=== PATIENT | female | born 1990 | race Caucasian/White ===

== ENCOUNTER 2017-02-08 07:17 | Inpatient (IN) | payer BC ==
[2017-02-08] MEDS ORDERED: Nalbuphine 20 MG/1 ML Amp IVPUSH PRN (07:22)
[2017-02-08] MEDS ORDERED: Sodium Chloride 0.9% 10 ML Syringe FLUSH PRN (07:22)
[2017-02-08] MEDS ORDERED: Ondansetron 4 MG/2 ML SDV IVPUSH PRN ×2 (07:22→15:42)
--- NOTE | 2017-02-08 07:26 | PCM.LDHP ---
L&D History of Present Illness - General Date of Service: 02/08/17 Admit Problem/Dx: Patient Status Order with Admit Dx/Problem 02/08/17 07:23 Patient Status [ADT] Routine Admission Diagnosis/Problem Admission Diagnosis/Problem Normal Source of Information: Patient History Limitations: Reports: No Limitations - History of Present Illness Introduction:: Patient is a 26 y/o at 37 4/7 wks who presents today for planned IOL for gestational HTN. Reports doing well recently. No persistent WICK's, vision changes, or RUQ pain. No contractions. No other concerns. 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) - Past Surgical History Musculoskeletal Surgical History: Reports: Other (See Below) (Fracture surgery) Social & Family History - Tobacco Use Smoking Status *Q: Never Smoker - Alcohol Use Alcohol Use History: No - Recreational Drug Use Recreational Drug Use: No H&P Review of Systems - Review of Systems: Review Of Systems: See Below General: Reports: No Symptoms Pulmonary: Reports: No Symptoms Cardiovascular: Reports: No Symptoms Gastrointestinal: Reports: No Symptoms Genitourinary: Reports: No Symptoms Musculoskeletal: Reports: No Symptoms Psychiatric: Reports: No Symptoms Neurological: Reports: No Symptoms L&D Exam - Exam Exam: See Below - OB Specific Contraction Intensity: Irritability Movement: Active Heart Tones: Present Heart Tones per Min: 135 Heart Rate (FHR) Variability: Moderate (6-25 bmp) Presentation: Vertex - Escamilla Score Escamilla Score Cervix Position: Posterior Escamilla Score Consistency: Medium Escamilla Score Effacement: 31-50% Escamilla Score Dilation: 1-2 cm Escamilla Score 's Station: -3 Escamilla Score Total: 3 - Exam General: Alert, Oriented, Cooperative Lungs: Clear to Auscultation, Normal Respiratory Effort Cardiovascular: Regular Rate, Regular Rhythm GI/Abdominal Exam: Soft, Non-Tender Genitourinary: Normal external exam Extremities: Normal Inspection Skin: Warm, Dry, Intact - Patient Data Result Diagrams: 02/08/17 07:49 02/08/17 07:49 - Problem List (1) Gestational hypertension SNOMED Code(s): 67907149 ICD Code: O13.9 - GESTATIONAL HTN W/O SIGNIFICANT PROTEINURIA, UNSP TRIMESTER Status: Acute Current Visit: Yes (2) 37 weeks gestation of SNOMED Code(s): 08502524 ICD Code: Z3A.37 - 37 WEEKS GESTATION OF Status: Acute Current Visit: Yes (3) GBS (group B Streptococcus carrier), +RV culture, currently SNOMED Code(s): 98329874 ICD Code: O99.820 - STREPTOCOCCUS B CARRIER STATE COMPLICATING Status: Acute Current Visit: Yes Problem List Initiated/Reviewed/Updated: Yes Orders Last 24hrs: Active Orders 24 hr Category Date Time Status Patient Status [ADT] Routine ADT 02/08/17 07:23 Ordered Activity as Tolerated [RC] PFP Care 02/08/17 07:22 Ordered Communication Order [RC] ASDIRECTED Care 02/08/17 07:22 Ordered Communication Order [RC] ASDIRECTED Care 02/08/17 07:22 Ordered Communication Order [RC] ASDIRECTED Care 02/08/17 07:22 Ordered Communication Order [RC] ASDIRECTED Care 02/08/17 07:22 Ordered Heart Tones [RC] ASDIRECTED Care 02/08/17 07:23 Ordered Monitoring [RC] INTERMITTENT Care 02/08/17 07:22 Ordered Notify Provider [RC] ASDIRECTED Care 02/08/17 07:22 Ordered Notify Provider [RC] PFP Care 02/08/17 07:22 Ordered Notify Provider [RC] PRN Care 02/08/17 07:22 Ordered Peripheral IV Care [RC] . DIRECTED Care 02/08/17 07:23 Ordered Up ad Tamika [RC] ASDIRECTED Care 02/08/17 07:22 Ordered Vaginal Exam [RC] ASDIRECTED Care 02/08/17 07:22 Ordered Vital Signs [RC] ASDIRECTED Care 02/08/17 07:22 Ordered Vital Signs [RC] PER UNIT ROUTINE Care 02/08/17 07:22 Ordered Regular Diet [DIET] Diet 02/08/17 Breakfast Ordered ALANINE AMINOTRANSFERASE,ALT [CHEM] Routine Lab 02/08/17 07:22 Ordered ASPARTATE AMNIOTRANSFERASE,AST [CHEM] Routine Lab 02/08/17 07:22 Ordered CBC W/O DIFF,HEMOGRAM [HEME] Routine Lab 02/08/17 07:22 Ordered CREATININE W/GFR [CHEM] Routine Lab 02/08/17 07:22 Ordered TYPE AND SCREEN [BBK] Routine Lab 02/08/17 07:22 Ordered Lactated Ringers [Ringers, Lactated] 1,000 ml Med 02/08/17 07:30 Ordered IV ASDIRECTED Misoprostol [Cytotec] Med 02/08/17 07:22 Ordered 25 mcg VAG Q4H PRN Nalbuphine [Nubain] Med 02/08/17 07:22 Ordered 10 mg IVPUSH Q2H PRN Ondansetron [Zofran] Med 02/08/17 07:22 Ordered 4 mg IVPUSH Q4H PRN Oxytocin/Lactated Ringers [Pitocin in LR 10 Units/1,000 Med 02/08/17 07:30 Ordered ML] 10 unit in 1,000 ml IV .CONTINUOUS Oxytocin/Lactated Ringers [Pitocin in LR 10 Units/1,000 Med 02/08/17 07:30 Ordered ML] 10 unit in 1,000 ml IV TITRATE Penicillin G Potassium [Pfizerpen] 2.5 millunits Med 02/08/17 21:30 Ordered Sodium Chloride 0.9% [Normal Saline] 100 ml IV Q4H Penicillin G Potassium [Pfizerpen] 5 millunits Med 02/08/17 17:30 Ordered Sodium Chloride 0.9% [Normal Saline] 100 ml IV ONETIME Sodium Chloride 0.9% [Saline Flush] Med 02/08/17 07:22 Ordered 10 ml FLUSH ASDIRECTED PRN Electronic Heart Tones Ext w TOCO [WOMSER] Oth 02/08/17 07:22 Ordered Routine Electronic Heart Tones Internal [WOMSER] Per Unit Oth 02/08/17 07:22 Ordered Routine Peripheral IV Insertion Adult [OM.PC] Routine Oth 02/08/17 07:22 Ordered Resuscitation Status Routine Resus Stat 02/08/17 07:22 Ordered Assessment/Plan Comment:: 26 y/o at 37 4/7 wks who presents for IOL for gestational HTN * CBC, T&S, AST, ALT, Creatinine * Cytotec for IOL for now. Levine bulb when able * Pain management per patient preference * GBS positive, will start antibiotics later in induction process * Anticipate
[2017-02-08] MEDS ORDERED: Oxytocin/Lactated Ringers 10 UNIT/1,000 ML BAG IV SCH (07:30)
[2017-02-08] MEDS ORDERED: Misoprostol 25 MCG (1/4 of 100 MCG) Tab ONE (07:31)
[2017-02-08] MEDS: Misoprostol 25 MCG (1/4 of 100 MCG) Tab VAG PRN ×2 (07:35→11:38)
--- NOTE | 2017-02-08 12:19 | PCM.PNLD ---
Labor Progress Note - VS & Meds Vital Signs: Last Vital Signs Temp 37.3 C 02/08/17 07:22 Pulse 85 02/08/17 07:22 Resp 16 02/08/17 07:22 BP 138/91 H 02/08/17 07:22 Pulse Ox Active Medications: Current Medications Lactated Ringer's (Ringers, Lactated) 1,000 mls @ 40 mls/hr IV ASDIRECTED ANASTASIA Oxytocin/Lactated Ringer's (Pitocin In Lr 10 Units/1,000 Ml) 10 unit in 1,000 mls @ 12 mls/hr IV TITRATE ANASTASIA; 2 MUNITS/MIN PRN Reason: Protocol Oxytocin/Lactated Ringer's (Pitocin In Lr 10 Units/1,000 Ml) 10 unit in 1,000 mls @ 500 mls/hr IV .CONTINUOUS ANASTASIA Penicillin G Potassium 5 (millunits/ Sodium Chloride) 100 mls @ 55 mls/hr IV ONETIME ONE Stop: 02/08/17 19:19 Penicillin G Potassium 2.5 (millunits/ Sodium Chloride) 100 mls @ 55 mls/hr IV Q4H ANASTASIA Misoprostol (Cytotec) 25 mcg VAG Q4H PRN PRN Reason: cervical ripening Last Admin: 02/08/17 11:38 Dose: 25 mcg Nalbuphine HCl (Nubain) 10 mg IVPUSH Q2H PRN PRN Reason: Pain (moderate 4-6) Ondansetron HCl (Zofran) 4 mg IVPUSH Q4H PRN PRN Reason: Nausea/Vomiting Sodium Chloride (Saline Flush) 10 ml FLUSH ASDIRECTED PRN PRN Reason: Keep Vein Open Discontinued Medications Misoprostol (Cytotec) Confirm Administered Dose 25 mcg .ROUTE .STK-MED ONE Stop: 02/08/17 07:32 Last Admin: 02/08/17 08:38 Dose: Not Given - Uterine Contractions Uterine Monitoring Mode: External [place] Contraction Intensity: Mild Uterine Resting Tone: Soft - Monitoring Monitor Mode: External Ultrasound Heart Rate (FHR) Baseline: 130 Heart Rate (FHR) Variability: Moderate (6-25 bmp) Accelerations: Present, 15x15 Decelerations: None Strip Review: Category I - Vaginal Exam Dilation (cm): 1 Effacement (Percent): 50 Station: -3 - Labor Progress (Free Text) Labor Progress: Patient doing well. Feeling some cramping. Otherwise doing well. 2nd cytotec placed at 1130. Levine bulb placed now to aid in induction process. Continue present management.
--- NOTE | 2017-02-08 15:31 | PCM.PREANE ---
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 ) Other: Reports: None - Physical Assessment NPO Status Date: 02/08/17 NPO Status Time: 15:00 Respiratory Rate: 16 Vital Signs: Last Vital Signs Temp 37.3 C 02/08/17 07:22 Pulse 85 02/08/17 07:22 Resp 16 02/08/17 07:22 BP 138/91 H 02/08/17 07:22 Pulse Ox Height: 1.78 m Weight: 107.184 kg ASA Class: 2 Mental Status: Alert & Oriented x3 Airway Class: Mallampati = 1 Dentition: Reports: Normal Dentition Thyro-Mental Finger Breadths: 3 Mouth Opening Finger Breadths: 3 ROM/Head Extension: Full Lungs: Clear to Auscultation, Normal Respiratory Effort Cardiovascular: Regular Rate, Regular Rhythm - Lab Values: Laboratory Last Values WBC 12.91 K/mm3 (3.98-10.04) H 02/08/17 07:49 RBC 3.78 M/mm3 (3.98-5.22) L 02/08/17 07:49 Hgb 10.7 gm/L (11.2-15.7) L 02/08/17 07:49 Hct 32.8 % (34.1-44.9) L 02/08/17 07:49 MCV 86.8 fl (79.4-94.8) 02/08/17 07:49 MCH 28.3 pg (25.6-32.2) 02/08/17 07:49 MCHC 32.6 g/dl (32.2-35.5) 02/08/17 07:49 RDW Std Deviation 39.8 fL (36.4-46.3) 02/08/17 07:49 Plt Count 270 K/mm3 (182-369) 02/08/17 07:49 MPV 10.9 fl (9.4-12.3) 02/08/17 07:49 Creatinine 0.7 mg/dL (0.55-1.02) 02/08/17 07:49 Est Cr Clr Drug Dosing 131.70 mL/min 02/08/17 07:49 Estimated GFR (MDRD) > 60 mL/min (>60) 02/08/17 07:49 AST 18 U/L (15-37) 12 07:49 ALT 18 U/L (14-59) 02/08/17 07:49 Blood Type O POSITIVE 02/08/17 07:49 Gel Antibody Screen Negative 02/08/17 07:49 - Allergies Allergies/Adverse Reactions: Allergies Allergy/AdvReac Type Severity Reaction Status Date / Time No Known Allergies Allergy Verified 02/08/17 07:45 - Blood Blood Available: No Product(s) Available: None - Anesthesia Plan Pre-Op Medication Ordered: None - Acknowledgements Anesthesia Type Planned: Epidural Pt an Appropriate Candidate for the Planned Anesthesia: Yes Alternatives and Risks of Anesthesia Discussed w Pt/Guardian: Yes Pt/Guardian Understands and Agrees with Anesthesia Plan: Yes PreAnesthesia Questionnaire Cardiovascular History: Reports: Other (See Below) Other Cardiovascular History: gestational hypertension Neurological History: Reports: Other (See Below) Other Neuro History: Erb's palsy at - Past Surgical History HEENT Surgical History: Reports: Oral Surgery - SUBSTANCE USE Smoking Status *Q: Never Smoker Second Hand Smoke Exposure: No Recreational Drug Use History: No - HOME MEDS Home Medications: Home Meds Vits #93/Iron Fum/FA [ Formula Tablet] 02/08/17 [History] - CURRENT (IN HOUSE) MEDS Current Meds: Current Medications Lactated Ringer's (Ringers, Lactated) 1,000 mls @ 40 mls/hr IV ASDIRECTED ANASTASIA Oxytocin/Lactated Ringer's (Pitocin In Lr 10 Units/1,000 Ml) 10 unit in 1,000 mls @ 12 mls/hr IV TITRATE ANASTASIA; 2 MUNITS/MIN PRN Reason: Protocol Oxytocin/Lactated Ringer's (Pitocin In Lr 10 Units/1,000 Ml) 10 unit in 1,000 mls @ 500 mls/hr IV .CONTINUOUS ANASTASIA Penicillin G Potassium 5 (millunits/ Sodium Chloride) 100 mls @ 55 mls/hr IV ONETIME ONE Stop: 02/08/17 19:19 Penicillin G Potassium 2.5 (millunits/ Sodium Chloride) 100 mls @ 55 mls/hr IV Q4H ANASTASIA Misoprostol (Cytotec) 25 mcg VAG Q4H PRN PRN Reason: cervical ripening Last Admin: 02/08/17 11:38 Dose: 25 mcg Nalbuphine HCl (Nubain) 10 mg IVPUSH Q2H PRN PRN Reason: Pain (moderate 4-6) Ondansetron HCl (Zofran) 4 mg IVPUSH Q4H PRN PRN Reason: Nausea/Vomiting Sodium Chloride (Saline Flush) 10 ml FLUSH ASDIRECTED PRN PRN Reason: Keep Vein Open Discontinued Medications Misoprostol (Cytotec) Confirm Administered Dose 25 mcg .ROUTE .ST-MED ONE Stop: 02/08/17 07:32 Last Admin: 02/08/17 08:38 Dose: Not Given
[2017-02-08] MEDS ORDERED: diphenhydrAMINE 50 MG/ML SDV IVPUSH PRN (15:42)
[2017-02-08] MEDS ORDERED: ePHEDrine 50 MG/ML SDV IVPUSH PRN (15:42)
[2017-02-08] MEDS: Lactated Ringers 1,000 ML IV SCH ×2 (16:53→22:30)
[2017-02-08] MEDS: Oxytocin/Lactated Ringers 10 UNIT/1,000 ML BAG IV SCH (16:53)
[2017-02-08] MEDS ORDERED: Penicillin G Potassium 5 MILLUNITS in Sodium Chloride 0.9% 100 ML IV ONE (17:30)
--- NOTE | 2017-02-08 19:27 | PCM.PNLD ---
Labor Progress Note - VS & Meds Vital Signs: Last Vital Signs Temp 37.3 C 02/08/17 07:22 Pulse 85 02/08/17 07:22 Resp 16 02/08/17 15:42 BP 138/91 H 02/08/17 07:22 Pulse Ox Active Medications: Current Medications Diphenhydramine HCl (Benadryl) 25 mg IVPUSH Q6H PRN PRN Reason: Pruritis Ephedrine Sulfate (Ephedrine Sulfate) 5 mg IVPUSH ASDIRECTED PRN PRN Reason: Hypotension Fentanyl (Sublimaze) 100 mcg EPIDUR Q3H PRN PRN Reason: Pain Fentanyl/Bupivacaine HCl (Fentanyl/Bupivacaine/Ns 2 Mcg-0.125% 100 Ml) 100 ml EPIDUR ASDIRECTED ANASTASIA Lactated Ringer's (Ringers, Lactated) 1,000 mls @ 40 mls/hr IV ASDIRECTED ANASTASIA Last Admin: 02/08/17 16:53 Dose: 40 mls/hr Oxytocin/Lactated Ringer's (Pitocin In Lr 10 Units/1,000 Ml) 10 unit in 1,000 mls @ 12 mls/hr IV TITRATE ANASTASIA; 2 MUNITS/MIN PRN Reason: Protocol Last Titration: 02/08/17 18:22 Dose: 6 munits/min, 36 mls/hr Oxytocin/Lactated Ringer's (Pitocin In Lr 10 Units/1,000 Ml) 10 unit in 1,000 mls @ 500 mls/hr IV .CONTINUOUS ANASTASIA Penicillin G Potassium 2.5 (millunits/ Sodium Chloride) 100 mls @ 55 mls/hr IV Q4H ANASTASIA Misoprostol (Cytotec) 25 mcg VAG Q4H PRN PRN Reason: cervical ripening Last Admin: 02/08/17 11:38 Dose: 25 mcg Nalbuphine HCl (Nubain) 10 mg IVPUSH Q2H PRN PRN Reason: Pain (moderate 4-6) Ondansetron HCl (Zofran) 4 mg IVPUSH Q4H PRN PRN Reason: Nausea/Vomiting Ondansetron HCl (Zofran) 4 mg IVPUSH ONETIME PRN PRN Reason: Nausea/Vomiting Sodium Chloride (Saline Flush) 10 ml FLUSH ASDIRECTED PRN PRN Reason: Keep Vein Open Discontinued Medications Penicillin G Potassium 5 (millunits/ Sodium Chloride) 100 mls @ 55 mls/hr IV ONETIME ONE Stop: 02/08/17 19:19 Last Admin: 02/08/17 16:54 Dose: 55 mls/hr Misoprostol (Cytotec) Confirm Administered Dose 25 mcg .ROUTE .STK-MED ONE Stop: 02/08/17 07:32 Last Admin: 02/08/17 08:38 Dose: Not Given - Uterine Contractions Uterine Monitoring Mode: External [place] Contraction Intensity: Moderate Uterine Resting Tone: Soft - Monitoring Monitor Mode: External Ultrasound Heart Rate (FHR) Baseline: 130 Heart Rate (FHR) Variability: Moderate (6-25 bmp) Accelerations: Present, 15x15 Decelerations: None Strip Review: Category I - Vaginal Exam Dilation (cm): 2-3 Effacement (Percent): 75 Station: -3 Cervical Position: Midposition - Labor Progress (Free Text) Labor Progress: Patient checked and wild bulb able to be removed. Will defer further cytotec and start pitocin with GBS prophylaxis.
[2017-02-08] MEDS: Bupivacaine/fentaNYL/NS 100 ML Bag EPIDUR SCH (21:43)
[2017-02-08] MEDS: fentaNYL 100 MCG/2 ML SDV EPIDUR PRN (21:43)
[2017-02-08] MEDS: Penicillin G Potassium 2.5 MILLUNITS in Sodium Chloride 0.9% 100 ML IV SCH (21:53)
[2017-02-08] MEDS ORDERED: Bupivacaine 0.25% 10 ML SDV ONE (22:22)
[2017-02-09] MEDS: Penicillin G Potassium 2.5 MILLUNITS in Sodium Chloride 0.9% 100 ML IV SCH ×3 (01:49→11:49)
[2017-02-09] MEDS: Bupivacaine/fentaNYL/NS 100 ML Bag EPIDUR SCH ×2 (03:26→08:10)
--- NOTE | 2017-02-09 06:46 | PCM.PNLD ---
Labor Progress Note - VS & Meds Vital Signs: Last Vital Signs Temp 37.3 C 02/08/17 07:22 Pulse 85 02/08/17 07:22 Resp 16 02/08/17 15:42 BP 138/91 H 02/08/17 07:22 Pulse Ox Active Medications: Current Medications Diphenhydramine HCl (Benadryl) 25 mg IVPUSH Q6H PRN PRN Reason: Pruritis Ephedrine Sulfate (Ephedrine Sulfate) 5 mg IVPUSH ASDIRECTED PRN PRN Reason: Hypotension Fentanyl (Sublimaze) 100 mcg EPIDUR Q3H PRN PRN Reason: Pain Last Admin: 02/08/17 21:43 Dose: 100 mcg Fentanyl/Bupivacaine HCl (Fentanyl/Bupivacaine/Ns 2 Mcg-0.125% 100 Ml) 100 ml EPIDUR ASDIRECTED ANASTASIA Last Admin: 02/09/17 03:26 Dose: 100 ml Lactated Ringer's (Ringers, Lactated) 1,000 mls @ 40 mls/hr IV ASDIRECTED ANASTASIA Last Admin: 02/09/17 00:00 Dose: 40 mls/hr Oxytocin/Lactated Ringer's (Pitocin In Lr 10 Units/1,000 Ml) 10 unit in 1,000 mls @ 12 mls/hr IV TITRATE ANASTASIA; 2 MUNITS/MIN PRN Reason: Protocol Last Titration: 02/09/17 06:15 Dose: 7 munits/min, 42 mls/hr Oxytocin/Lactated Ringer's (Pitocin In Lr 10 Units/1,000 Ml) 10 unit in 1,000 mls @ 500 mls/hr IV .CONTINUOUS ANASTASIA Penicillin G Potassium 2.5 (millunits/ Sodium Chloride) 100 mls @ 55 mls/hr IV Q4H ANASTASIA Last Admin: 02/09/17 01:49 Dose: 55 mls/hr Misoprostol (Cytotec) 25 mcg VAG Q4H PRN PRN Reason: cervical ripening Last Admin: 02/08/17 11:38 Dose: 25 mcg Nalbuphine HCl (Nubain) 10 mg IVPUSH Q2H PRN PRN Reason: Pain (moderate 4-6) Ondansetron HCl (Zofran) 4 mg IVPUSH Q4H PRN PRN Reason: Nausea/Vomiting Ondansetron HCl (Zofran) 4 mg IVPUSH ONETIME PRN PRN Reason: Nausea/Vomiting Sodium Chloride (Saline Flush) 10 ml FLUSH ASDIRECTED PRN PRN Reason: Keep Vein Open Discontinued Medications Penicillin G Potassium 5 (millunits/ Sodium Chloride) 100 mls @ 55 mls/hr IV ONETIME ONE Stop: 02/08/17 19:19 Last Admin: 02/08/17 16:54 Dose: 55 mls/hr Misoprostol (Cytotec) Confirm Administered Dose 25 mcg .ROUTE .STK-MED ONE Stop: 02/08/17 07:32 Last Admin: 02/08/17 08:38 Dose: Not Given - Uterine Contractions Uterine Monitoring Mode: External [place] Contraction Intensity: Moderate to Strong Uterine Resting Tone: Soft - Monitoring Monitor Mode: External Ultrasound Heart Rate (FHR) Baseline: 125 Heart Rate (FHR) Variability: Moderate (6-25 bmp) (Some periods of minimal variability) Accelerations: Present, 15x15 Decelerations: None Strip Review: Category I - Vaginal Exam Dilation (cm): 4 Effacement (Percent): 75 Station: -2 Cervical Position: Midposition (Cervix opening somewhat off to patient's right) - Labor Progress (Free Text) Labor Progress: Patient doing well. Patient received her epidural last night at about 2230. Prior to that she was thought to be 2-3 cm dilated still. Was reassessed by nursing at 0200 this am and thought to be 3-4. Now easy 4 cm dilated. Pitocin had been at max of 18 overnight, but recently decreased to 11 due to frequent contractions. AROM just performed with release of clear fluid. Continue to adjust as needed.
[2017-02-09] MEDS: Oxytocin/Lactated Ringers 10 UNIT/1,000 ML BAG IV SCH (08:09)
[2017-02-09] MEDS ORDERED: fentaNYL 100 MCG/2 ML SDV EPIDUR PRN (08:10)
[2017-02-09] MEDS: fentaNYL 100 MCG/2 ML SDV EPIDUR PRN (08:30)
[2017-02-09] MEDS: Lactated Ringers 1,000 ML IV SCH ×2 (11:50)
[2017-02-09] MEDS ORDERED: Misoprostol 200 MCG Tab ONE (13:34)
[2017-02-09] MEDS ORDERED: Carboprost Tromethamine 250 MCG/1 ML Amp ONE ×2 (13:44→13:54)
[2017-02-09] MEDS ORDERED: Misoprostol 200 MCG Tab PO STA (14:13)
[2017-02-09] MEDS ORDERED: Carboprost Tromethamine 250 MCG/1 ML Amp IM ONE ×2 (14:13→14:18)
[2017-02-09] MEDS ORDERED: ceFAZolin 2 GM in Premix Bag 1 BAG IV ONE (14:13)
--- NOTE | 2017-02-09 14:30 | PCM.DEL ---
L & D Note - General Info Date of Service: 02/09/17 - Delivery Note Labor: Induced by ARM, Induced by Oxytocin Cervical Ripening Method: Balloon Device, Misoprostil Delivery Outcome: Livebirth Infant Delivery Method: Spontaneous Vaginal Delivery-Single Delivery Mode: Spontaneous Presentation: Left Occiput Anterior (DARI) Nuchal Cord: None Anesthesia Type: Epidural Amniotic Fluid Description: Clear Episiotomy Type: None Laceration: 2nd Degree, Vaginal Suture type: Vicryl Suture size: 2-0 Placenta: Intact, Spontaneous Cord: 3 Vessels Estimated Blood Loss: 750 Resuscitation Needed: Yes : Bulb Syringe, Stimulated, Warmed, [place] Used, Warmer Used Delivery Comments (Free Text/Narrative):: Patient found to be complete and began pushing. With maternal pushing effort head delivered from an TRACY presentation. No nuchal cord present. With gentle downward traction the shoulders and body delivered. Infant placed on maternal abdomen. Cord clamped and cut. Cord blood obtained. Inspection of the perineum showed a 2nd degree vaginal/labial laceration which was repaired with a 2-0 vicryl. The placenta spontaneously expelled. After delivery of the placenta poor uterine tone noted. This did not respond well to fundal massage or pitocin and so 600 mcg of buccal cytotec given. Patient still with poor tone, continued bleeding and so 250 mcg of Hemabate given. Initial response was achieved with this medication and then there was again relaxation of the uterus. During this time several manual sweeps of the uterus and lower segment were performed with evaluation of large amount of clot. After 15 minutes an additional dose of Hemabate was given. This along with vigorous massage finally resulted in good uterine tone. Patient also given a dose of ancef after do to several uterine explorations - Patient Data Vitals - Most Recent: Last Vital Signs Temp 37.3 C 02/08/17 07:22 Pulse 85 02/08/17 07:22 Resp 16 02/08/17 15:42 BP 138/91 H 02/08/17 07:22 Pulse Ox Weight - Most Recent: 107.184 kg I&O - Last 24 Hours: Intake & Output 02/08/17 02/09/17 02/09/17 22:59 06:59 14:59 Intake Total 160 Balance 160 Med Orders - Current: Current Medications Diphenhydramine HCl (Benadryl) 25 mg IVPUSH Q6H PRN PRN Reason: Pruritis Ephedrine Sulfate (Ephedrine Sulfate) 5 mg IVPUSH ASDIRECTED PRN PRN Reason: Hypotension Fentanyl (Sublimaze) 100 mcg EPIDUR Q3H PRN PRN Reason: Pain Last Admin: 02/09/17 08:30 Dose: 100 mcg Fentanyl (Sublimaze) 100 mcg EPIDUR ONETIME PRN PRN Reason: Pain Fentanyl/Bupivacaine HCl (Fentanyl/Bupivacaine/Ns 2 Mcg-0.125% 100 Ml) 100 ml EPIDUR ASDIRECTED ANASTASIA Last Admin: 02/09/17 08:10 Dose: 100 ml Lactated Ringer's (Ringers, Lactated) 1,000 mls @ 40 mls/hr IV ASDIRECTED [facility] Last Admin: 02/09/17 11:50 Dose: 40 mls/hr Oxytocin/Lactated Ringer's (Pitocin In Lr 10 Units/1,000 Ml) 10 unit in 1,000 mls @ 12 mls/hr IV TITRATE ANASTASIA; 2 MUNITS/MIN PRN Reason: Protocol Last Admin: 02/09/17 08:09 Dose: 7 munits/min, 42 mls/hr Oxytocin/Lactated Ringer's (Pitocin In Lr 10 Units/1,000 Ml) 10 unit in 1,000 mls @ 500 mls/hr IV .CONTINUOUS ANASTASIA Penicillin G Potassium 2.5 (millunits/ Sodium Chloride) 100 mls @ 55 mls/hr IV Q4H [facility] Last Admin: 02/09/17 11:49 Dose: 55 mls/hr Cefazolin Sodium/Dextrose 2 gm (/ Premix) 50 mls @ 100 mls/hr IV ONETIME ONE Stop: 02/09/17 14:42 Misoprostol (Cytotec) 25 mcg VAG Q4H PRN PRN Reason: cervical ripening Last Admin: 02/08/17 11:38 Dose: 25 mcg Nalbuphine HCl (Nubain) 10 mg IVPUSH Q2H PRN PRN Reason: Pain (moderate 4-6) Ondansetron HCl (Zofran) 4 mg IVPUSH Q4H PRN PRN Reason: Nausea/Vomiting Ondansetron HCl (Zofran) 4 mg IVPUSH ONETIME PRN PRN Reason: Nausea/Vomiting Sodium Chloride (Saline Flush) 10 ml FLUSH ASDIRECTED PRN PRN Reason: Keep Vein Open Discontinued Medications Carboprost Tromethamine (Hemabate Ds) Confirm Administered Dose 250 mcg .ROUTE .STK-MED ONE Stop: 02/09/17 13:45 Carboprost Tromethamine (Hemabate Ds) Confirm Administered Dose 250 mcg .ROUTE .STK-MED ONE Stop: 02/09/17 13:55 Carboprost Tromethamine (Hemabate Ds) 250 mcg IM ONETIME ONE Stop: 02/09/17 14:14 Carboprost Tromethamine (Hemabate Ds) 250 mcg IM ONETIME ONE Stop: 02/09/17 14:19 Penicillin G Potassium 5 (millunits/ Sodium Chloride) 100 mls @ 55 mls/hr IV ONETIME ONE Stop: 02/08/17 19:19 Last Admin: 02/08/17 16:54 Dose: 55 mls/hr Misoprostol (Cytotec) Confirm Administered Dose 25 mcg .ROUTE .STK-MED ONE Stop: 02/08/17 07:32 Last Admin: 02/08/17 08:38 Dose: Not Given Misoprostol (Cytotec) Confirm Administered Dose 600 mcg .ROUTE .STK-MED ONE Stop: 02/09/17 13:35 Misoprostol (Cytotec) 600 mcg PO NOW STA Stop: 02/09/17 14:14 - Problem List & Annotations (1) Gestational hypertension SNOMED Code(s): 98707343 Code(s): O13.9 - GESTATIONAL HTN W/O SIGNIFICANT PROTEINURIA, UNSP TRIMESTER Status: Acute Current Visit: Yes (2) 37 weeks gestation of SNOMED Code(s): 88342213 Code(s): Z3A.37 - 37 WEEKS GESTATION OF Status: Acute Current Visit: Yes (3) GBS (group B Streptococcus carrier), +RV culture, currently SNOMED Code(s): 83707880, 4911212580774 Code(s): O99.820 - STREPTOCOCCUS B CARRIER STATE COMPLICATING Status: Acute Current Visit: Yes (4) Vaginal delivery SNOMED Code(s): 717510840 Code(s): O80 - ENCOUNTER FOR FULL-TERM UNCOMPLICATED DELIVERY Status: Acute Current Visit: Yes (5) hemorrhage SNOMED Code(s): 52237526 Code(s): O72.1 - OTHER IMMEDIATE HEMORRHAGE Status: Acute Current Visit: Yes Qualifiers: hemorrhage type: other immediate Qualified Code(s): O72.1 - Other immediate hemorrhage - Problem List Review Problem List Initiated/Reviewed/Updated: Yes - My Orders Last 24 Hours: My Active Orders 02/08/17 21:30 Penicillin G Potassium [Pfizerpen] 2.5 millunits Sodium Chloride 0.9% [Normal Saline] 100 ml IV Q4H 02/09/17 14:13 ceFAZolin [Ancef] 2 gm Premix Bag 1 bag IV ONETIME 02/09/17 14:27 Patient Status Manage Transfer [TRANSFER] Routine - Assessment Assessment:: 26 y/o G1 now P1001 PPD#0 from at 37 5/7 wks after IOL for Gestational HTN - delivery complicated by PPH - Plan Plan:: Gestational HTN * Continue to monitor BP's closely PPH * S/p 2 doses of hemabate and buccal cytotec along with 2nd bag of IV pitocin * EBL at least 750 cc. Repeat CBC in AM * Routine cares * Encourage breast feeding * Discharge home in 2 days
--- NOTE | 2017-02-09 15:11 | PCM48HPAN ---
Post Anesthesia Note - EVALUATION WITHIN 48HRS OF ANESTHETIC Vital Signs in Normal Range: Yes Patient Participated in Evaluation: Yes Respiratory Function Stable: Yes Airway Patent: Yes Cardiovascular Function Stable: Yes Hydration Status Stable: Yes Pain Control Satisfactory: Yes Nausea and Vomiting Control Satisfactory: Yes Mental Status Recovered: Yes
[2017-02-09] MEDS ORDERED: Lanolin 100% Cream 7 GM Tube TOP PRN (16:26)
[2017-02-09] MEDS ORDERED: Acetaminophen 325 MG Tab PO PRN (16:26)
[2017-02-09] MEDS ORDERED: Benzocaine/Menthol 20%-0.5% Spray 56 GM Canister TOP PRN (16:26)
[2017-02-09] MEDS ORDERED: Ondansetron 4 MG Tab.DIS PO PRN (16:53)
[2017-02-09] MEDS: Witch Hazel Medicated Pads 100/Jar TOP PRN (17:02)
[2017-02-09] MEDS: Docusate Sodium 100 MG Cap PO PRN (17:21)
[2017-02-09] MEDS: Ibuprofen 600 MG Tab PO PRN ×2 (17:21→23:41)
[2017-02-10] MEDS: Penicillin G Potassium 2.5 MILLUNITS in Sodium Chloride 0.9% 100 ML IV SCH (15:13)
[2017-02-10] MEDS: Docusate Sodium 100 MG Cap PO PRN (16:28)
[2017-02-10] MEDS: Witch Hazel Medicated Pads 100/Jar TOP PRN (17:31)
--- NOTE | 2017-02-11 08:04 | PCM.DCSUM1 ---
Discharge Summary - Hospital Course Brief History: Admitted, complicated by hemorroage. Stable with anemia - Discharge Data Discharge Date: 02/11/17 Discharge Disposition: Home, Self-Care 01 Condition: Good - Patient Instructions Diet: Regular Diet as Tolerated Activity: As Tolerated Activity, Other: Pelvic Rest for 6 weeks Driving: May Drive Today Showering/Bathing: May Shower Showering/Bathing, Other: May Bathe Notify Provider of: Fever, Increased Pain, Swelling and Redness, Drainage, Nausea and/or Vomiting - Discharge Plan Home Medications: Home Meds Vits #93/Iron Fum/FA [ Formula Tablet] 02/08/17 [History] Docusate Sodium [Colace] 100 mg PO BID PRN cap 02/09/17 [Rx] Ibuprofen [IJD: Ibuprofen] 600 mg PO Q6H PRN tablet 02/09/17 [Rx] Referrals: Shruthi Hawkins MD [Primary Care Provider] - (2 weeks for BP check ) - Discharge Summary/Plan Comment DC Time >30 min.: No - General Info Date of Service: 02/11/17 Functional Status: Reports: Pain Controlled - Review of Systems General: Reports: Fatigue HEENT: Reports: No Symptoms Pulmonary: Reports: No Symptoms Cardiovascular: Reports: No Symptoms Gastrointestinal: Reports: No Symptoms Genitourinary: Reports: No Symptoms Musculoskeletal: Reports: No Symptoms Skin: Reports: No Symptoms Neurological: Reports: No Symptoms Psychiatric: Reports: No Symptoms - Patient Data Vitals - Most Recent: Last Vital Signs Temp 37.0 C 02/11/17 04:19 Pulse 99 02/11/17 04:19 Resp 14 02/11/17 04:19 BP 126/69 02/11/17 04:19 Pulse Ox 98 02/11/17 04:19 Weight - Most Recent: 107.184 kg Med Orders - Current: Current Medications Acetaminophen (Tylenol) 650 mg PO Q4H PRN PRN Reason: mild pain or fever Last Admin: 02/09/17 20:00 Dose: 650 mg Benzocaine/Menthol (Dermoplast Pain Relief Ruso) 0 gm TOP ASDIRECTED PRN PRN Reason: Perineal Comfort Measure Last Admin: 02/09/17 17:01 Dose: 56 can Docusate Sodium (Colace) 100 mg PO BID PRN PRN Reason: Constipation Last Admin: 02/10/17 16:28 Dose: 100 mg Emollient Ointment (Lansinoh Hpa) 0 gm TOP ASDIRECTED PRN PRN Reason: Sore Nipples Ibuprofen (Motrin) 600 mg PO Q6H PRN PRN Reason: Mild pain or fever Last Admin: 02/09/17 23:41 Dose: 600 mg Ondansetron HCl (Zofran Odt) 8 mg PO Q8H PRN PRN Reason: Nausea/Vomiting Last Admin: 02/09/17 17:00 Dose: 8 mg Witch Marjorie (Tucks) 1 pad TOP ASDIRECTED PRN PRN Reason: Hemorrhoid pain Last Admin: 02/10/17 17:31 Dose: 1 jar Discontinued Medications Carboprost Tromethamine (Hemabate Ds) Confirm Administered Dose 250 mcg .ROUTE .STK-MED ONE Stop: 02/09/17 13:45 Last Admin: 02/10/17 15:14 Dose: Not Given Carboprost Tromethamine (Hemabate Ds) Confirm Administered Dose 250 mcg .ROUTE .STK-MED ONE Stop: 02/09/17 13:55 Last Admin: 02/10/17 15:14 Dose: Not Given Carboprost Tromethamine (Hemabate Ds) 250 mcg IM ONETIME ONE Stop: 02/09/17 14:14 Last Admin: 02/09/17 13:59 Dose: 250 mcg Carboprost Tromethamine (Hemabate Ds) 250 mcg IM ONETIME ONE Stop: 02/09/17 14:19 Last Admin: 02/09/17 15:00 Dose: 250 mcg Diphenhydramine HCl (Benadryl) 25 mg IVPUSH Q6H PRN PRN Reason: Pruritis Ephedrine Sulfate (Ephedrine Sulfate) 5 mg IVPUSH ASDIRECTED PRN PRN Reason: Hypotension Fentanyl (Sublimaze) 100 mcg EPIDUR Q3H PRN PRN Reason: Pain Last Admin: 02/09/17 08:30 Dose: 100 mcg Fentanyl (Sublimaze) 100 mcg EPIDUR ONETIME PRN PRN Reason: Pain Fentanyl/Bupivacaine HCl (Fentanyl/Bupivacaine/Ns 2 Mcg-0.125% 100 Ml) 100 ml EPIDUR ASDIRECTED ANASTASIA Last Admin: 02/09/17 08:10 Dose: 100 ml Lactated Ringer's (Ringers, Lactated) 1,000 mls @ 40 mls/hr IV ASDIRECTED ANASTASIA Last Admin: 02/09/17 11:50 Dose: 40 mls/hr Oxytocin/Lactated Ringer's (Pitocin In Lr 10 Units/1,000 Ml) 10 unit in 1,000 mls @ 12 mls/hr IV TITRATE ANASTASIA; 2 MUNITS/MIN PRN Reason: Protocol Last Admin: 02/09/17 08:09 Dose: 7 munits/min, 42 mls/hr Oxytocin/Lactated Ringer's (Pitocin In Lr 10 Units/1,000 Ml) 10 unit in 1,000 mls @ 500 mls/hr IV .CONTINUOUS ANASTASIA Last Infusion: 02/09/17 22:55 Dose: Infused Penicillin G Potassium 5 (millunits/ Sodium Chloride) 100 mls @ 55 mls/hr IV ONETIME ONE Stop: 02/08/17 19:19 Last Admin: 02/08/17 16:54 Dose: 55 mls/hr Penicillin G Potassium 2.5 (millunits/ Sodium Chloride) 100 mls @ 55 mls/hr IV Q4H ANASTASIA Last Admin: 02/10/17 15:13 Dose: Not Given Cefazolin Sodium/Dextrose 2 gm (/ Premix) 50 mls @ 100 mls/hr IV ONETIME ONE Stop: 02/09/17 14:42 Last Admin: 02/09/17 15:09 Dose: 100 mls/hr Misoprostol (Cytotec) 25 mcg VAG Q4H PRN PRN Reason: cervical ripening Last Admin: 02/08/17 11:38 Dose: 25 mcg Misoprostol (Cytotec) Confirm Administered Dose 25 mcg .ROUTE .STK-MED ONE Stop: 02/08/17 07:32 Last Admin: 02/08/17 08:38 Dose: Not Given Misoprostol (Cytotec) Confirm Administered Dose 600 mcg .ROUTE .STK-MED ONE Stop: 02/09/17 13:35 Last Admin: 02/09/17 13:37 Dose: 600 mcg Misoprostol (Cytotec) 600 mcg PO NOW STA Stop: 02/09/17 14:14 Last Admin: 02/10/17 15:14 Dose: Not Given Nalbuphine HCl (Nubain) 10 mg IVPUSH Q2H PRN PRN Reason: Pain (moderate 4-6) Ondansetron HCl (Zofran) 4 mg IVPUSH Q4H PRN PRN Reason: Nausea/Vomiting Ondansetron HCl (Zofran) 4 mg IVPUSH ONETIME PRN PRN Reason: Nausea/Vomiting Sodium Chloride (Saline Flush) 10 ml FLUSH ASDIRECTED PRN PRN Reason: Keep Vein Open - Exam General: Reports: Alert, Oriented HEENT: Reports: Pupils Equal, Pupils Reactive, EOMI, Mucous Membr. Moist/[place] Neck: Reports: Supple Lungs: Reports: Clear to Auscultation, Normal Respiratory Effort Cardiovascular: Reports: Regular Rate, Regular Rhythm GI/Abdominal Exam: Normal Bowel Sounds, Soft, Non-Tender, No Organomegaly, No Distention, No Abnormal Bruit, No Mass, Pelvis Stable Back Exam: Reports: Normal Inspection, Full Range of Motion Extremities: Normal Inspection, Normal Range of Motion, Non-Tender, No Pedal Edema, Normal Capillary Refill Skin: Reports: Warm, Dry, Intact Wound/Incisions: Reports: Healing Well Neurological: Reports: No New Focal Deficit Psy/Mental Status: Reports: Alert, Normal Affect, Normal Mood *Q Meaningful Use (DIS) - VTE *Q VTE Criteria *Q: - Stroke *Q Stroke Criteria *Q: - AMI *Q AMI Criteria *Q:
== END 2017-02-11 10:30 | disposition home or self-care (01) | DRG 560 ==
LOC: JD.OB 07:17 → INTOOBSV 07:17 → JD.OB 13:24 → OBSVTOIN 02-09 13:24 → JD.OB 02-09 13:24
PROVIDERS: ADMIT Obstetrics & Gynecology; ATTEND Obstetrics & Gynecology
PROC: 10E0XZZ Delivery of Products of Conception, External Approach (ICD-10-PCS; principal; 2017-02-09)
PROC: 0KQM0ZZ Repair Perineum Muscle, Open Approach (ICD-10-PCS; 2017-02-09)
PROC: 3E0P7VZ Introduction of Hormone into Female Reproductive, Via Natural or Artificial Opening (ICD-10-PCS; 2017-02-09)
PROC: 10907ZC Drainage of Amniotic Fluid, Therapeutic from Products of Conception, Via Natural or Artificial Opening (ICD-10-PCS; 2017-02-09)
PROC: 00HU33Z Insertion of Infusion Device into Spinal Canal, Percutaneous Approach (ICD-10-PCS; 2017-02-09)
PROC: 3E0R3BZ Introduction of Anesthetic Agent into Spinal Canal, Percutaneous Approach (ICD-10-PCS; 2017-02-09)
DX: O13.4 Gestational [pregnancy-induced] hypertension without significant proteinuria, complicating childbirth (principal); O99.824 Streptococcus B carrier state complicating childbirth; O70.1 Second degree perineal laceration during delivery; O72.1 Other immediate postpartum hemorrhage; O90.81 Anemia of the puerperium; D64.9 Anemia, unspecified; Z3A.38 38 weeks gestation of pregnancy; Z37.0 Single live birth
CPT/HCPCS: 36415; 51702; 59300; 59409; 82565; 84450; 84460; 85027; 86850; 86900; 86901; A9270-GY; J0690; J2540; J2590; J3010; J7030; J7120